=== PATIENT | female | born 1960 | race Caucasian/White ===

== ENCOUNTER → 2016-09-23 | Outpatient (CLI) | payer BC ==
[~2016-09-23] MED LIST: IOHEXOL 300 MG/ML 75ml INJECTION ONE; NORMAL SALINE 100 ML ONE; SALINE FLUSH 10ml SYRINGE ONE
--- NOTE | 2016-09-23 09:23 | DI ---
Indication: ITS.REASON: N92.4 MENORRHAGIA, PREMENOPAUSAL PROCEDURE: US PELVIC NON OB W/TRANS VAG: Encounter: Initial Comparison: None FINDINGS: Transvaginal and transabdominal pelvic imaging was performed. The uterus measures 11.3 x 5.1 x 5.2 cm. The parenchyma is heterogeneous with fibroids. [employer] myometrial fibroid in the midline and measures 1.7 cm in diameter. Additional myometrial fibroid on the right measuring 1.5 cm in diameter. The endometrial stripe measures 5 mm in thickness. There is no evidence of focal endometrial mass. Both ovaries are identified and normal in appearance. The right ovary measures 0.8 x 1 x 0.9 cm. The left ovary measures 2.2 x 1.6 x 2.4 cm. There are no abnormal adnexal masses detected. IMPRESSION: Uterine fibroids .
--- NOTE | 2016-09-23 10:23 | DI ---
Indication: ITS.REASON: K76.9 LIVER LESION PROCEDURE: CT ABD/PELVIS W/CONTRAST ONLY: Encounter: Initial Comparison: None Technique: Axial CT images were performed through the abdomen and pelvis after the administration of intravenous contrast. Coronal and sagittal two-dimensional reformats. Automated Exposure Control and Iterative Reconstruction dose reducing techniques were utilized. Contrast: Omnipaque 300 67 mL Findings: The lung bases are clear. The liver shows a low attenuation lesion in the superior central right hepatic lobe on axial image #9 and 10 that shows some interrupted peripheral enhancement measuring 1.3 cm in diameter consistent with a benign hemangioma. There is a larger low-attenuation focus in the inferior right lobe along the gallbladder fossa which shows a few foci of nodular interrupted peripheral enhancement. This lesion measures 6.4 x 4.6 x 4.3 cm in size. Tiny nonenhancing presumed cyst in the right lobe on image #21 measuring 0.5 cm in diameter. No additional hepatic lesions identified. No bile duct dilatation. Spleen, pancreas and adrenal glands are within normal limits. The kidneys appear normal. No abdominal or pelvic lymphadenopathy. Bladder is normal. Uterus shows some fluid in the endometrial canal but is otherwise normal. Pelvic varices noted incidentally. Moderate to large amount of stool in the colon. The appendix is normal. No evidence of bowel obstruction. Bone windows show mild degenerative change in the spine. Impression: Large benign hemangioma in the liver adjacent to the gallbladder fossa. Additional smaller hemangioma in the superior right lobe. .
== END ==
LOC: IMA 07:20
PROVIDERS: ATTEND Family Medicine
DX: K76.9 Liver disease, unspecified (principal); D18.09 Hemangioma of other sites; N92.4 Excessive bleeding in the premenopausal period; D25.9 Leiomyoma of uterus, unspecified
CPT/HCPCS: 74177; 76830; 76856; J7050; Q9967